=== PATIENT | female | born 1985 | race Caucasian/White ===

== ENCOUNTER 2020-10-20 14:31 | Emergency (ER) | payer MEDICAID ==
[~2020-10-20] VITALS: Ht 165.1 cm; Wt 54.5 kg
[2020-10-20 15:18] LABS: COVID AG,FIA SOURCE NASOPHARYNGEAL
[2020-10-20 17:22] VITALS: BP 139/85
== END 2020-10-20 17:23 | disposition home or self-care (01) ==
LOC: EMS 14:31
DX: U07.1 COVID-19 (principal)
CPT/HCPCS: 87426; 71045-TC

== ENCOUNTER 2020-11-05 12:43 | Emergency (ER) | payer MEDICAID ==
[~2020-11-05] VITALS: Ht 167.6 cm; Wt 56.8 kg
[2020-11-05 12:48] VITALS: BP 119/69
== END 2020-11-05 13:41 | disposition home or self-care (01) ==
LOC: EMS 12:45
DX: U07.1 COVID-19 (principal); F17.210 Nicotine dependence, cigarettes, uncomplicated; F12.90 Cannabis use, unspecified, uncomplicated; F19.90 Other psychoactive substance use, unspecified, uncomplicated; F11.90 Opioid use, unspecified, uncomplicated
CPT/HCPCS: Z7502

== ENCOUNTER 2020-12-05 16:27 | Emergency (ER) | payer MEDICAID, OTHER ==
[~2020-12-05] VITALS: Ht 167.6 cm; Wt 55.0 kg
[2020-12-05 18:09] LABS: COVID AG,FIA SOURCE NASOPHARYNGEAL
[2020-12-05 18:54] VITALS: BP 140/80
== END 2020-12-05 18:55 | disposition home or self-care (01) ==
LOC: EMS 16:27
DX: B19.20 Unspecified viral hepatitis C without hepatic coma (principal); F11.90 Opioid use, unspecified, uncomplicated; Z20.822 Contact with and (suspected) exposure to COVID-19
CPT/HCPCS: 87426; 93005; Z7502

== ENCOUNTER 2021-02-24 10:56 | Inpatient (IN) | payer MEDICAID, OTHER ==
[~2021-02-24] VITALS: Ht 167.6 cm; Wt 59.5 kg
[2021-02-24] MEDS ORDERED: HALOPERIDOL LACTATE 5 MG/ML VIAL IM ONE (11:30)
[2021-02-24] MEDS ORDERED: LORazepam 2 MG/ML VIAL IM ONE (11:30)
[2021-02-24] MEDS ORDERED: DiphenhydrAMINE HCL 50 MG/ML VIAL IM ONE (11:30)
[2021-02-24 12:07] LABS: COVID AG,FIA SOURCE NASOPHARYNGEAL
[2021-02-24] MEDS ORDERED: GuaiFENesin/D-METHORPHAN [SUGAR-FREE] 200-20MG/10 ML SYRUP UDCUP PO PRN (12:30)
[2021-02-24] MEDS ORDERED: MAGNESIUM HYDROXIDE SUSPENSION 30 ML UDCUP PO PRN (12:30)
[2021-02-24] MEDS ORDERED: LOPERAMIDE HCL 2 MG CAPSULE PO PRN (12:30)
[2021-02-24] MEDS ORDERED: TUBERCULIN, PURIFIED PROTEIN DERIVATIVE 5 TU/0.1 ML SYRINGE ID ONE (12:30)
[2021-02-24] MEDS ORDERED: HydrOXYzine PAMOATE 50 MG CAPSULE PO PRN (13:00)
[2021-02-24] MEDS ORDERED: MAG HYDROX/AL HYDROX/SIMETH ES 30 ML SUSPENSION UDCUP PO PRN (13:00)
[2021-02-24] MEDS ORDERED: CloNIDine HCL 0.1 MG TABLET PO PRN (13:00)
[2021-02-24 14:59] LABS: EOSINOPHILS % (AUTO) 1.5 % (1.0-6.0); HEMATOCRIT 39.8 % (36-46); HEMOGLOBIN 12.5 g/dL (12.0-16.0); LYMPHOCYTES # (AUTO) 1.2 K/uL (1.0-4.8); LYMPHOCYTES % (AUTO) 34.3 % (22.0-44.0); MEAN CORPUSCULAR HGB CONC 31.5 G/dL (31.0-37.0); MEAN CORPUSCULAR VOLUME 79 fL (80-100); MONOCYTES # (AUTO) 0.3 K/uL (0.1-1.0); MONOCYTES % (AUTO) 7.9 % (2.0-9.0); NEUTROPHILS % (AUTO) 55.3 % (40.0-70.0); RED BLOOD CELL COUNT(AUTO) 5.01 MIL/uL (4.00-5.20); RED CELL DISTRIBUTION WIDTH 14.1 % (11.5-14.5)
[2021-02-24 15:30] LABS: ANION GAP 10 mmol/L (8-16); CALCIUM, TOTAL 8.3 mg/dL (8.8-10.5); CARBON DIOXIDE 21 mmol/L (22-29); CHLORIDE 107 mmol/L (98-107); CREATININE 0.69 mg/dL (0.60-1.30); GLOMERULAR FILTR. RATE CALC > 60 mL/min (>60); GLUCOSE,RANDOM 75 mg/dL (70-110); POTASSIUM 4.3 mmol/L (3.5-5.1); SODIUM SERUM 138 mmol/L (136-145); UREA NITROGEN, BLOOD 12 mg/dL (7-18)
[2021-02-24 15:42] LABS: ALANINE AMINOTRANSFERASE 37 U/L (12-78); ALBUMIN 3.5 g/dL (3.4-5.0); ALKALINE PHOSPHATASE 47 U/L (46-116); ASPARTATE AMINOTRANSFERASE 52 U/L (15-37); BILIRUBIN,TOTAL 0.3 mg/dL (0.1-1.0); HCG,QUANTITATIVE < 1 mIU/mL (0-6); TOTAL PROTEIN, SERUM 7.6 g/dL (6.4-8.2)
[2021-02-24 15:46] LABS: PLATELET COUNT (AUTO) 155 K/uL (150-450)
[2021-02-24 16:40] VITALS: BP 117/76
[2021-02-24 18:00] VITALS: BP 108/68
[2021-02-24 19:00] VITALS: BP 117/76
[2021-02-24 20:00] VITALS: BP 117/77
[2021-02-24] MEDS: CloNIDine HCL 0.1 MG TABLET PO SCH (20:35)
[2021-02-24] MEDS: THIAMINE 100 MG TABLET PO SCH (20:35)
[2021-02-24 21:00] VITALS: BP 111/62
[2021-02-24] MEDS: OLANZapine 5 MG RAPDIS TABLET PO SCH (21:00)
[2021-02-24] MEDS: MELATONIN 5 MG TABLET PO SCH (21:00)
[2021-02-25] VITALS (10 sets, daily range): BP systolic 106–141; BP diastolic 62–92
[2021-02-25] MEDS: LORazepam 2 MG TABLET PO PRN ×4 (00:48→22:42)
[2021-02-25] MEDS: ZOLPIDEM TARTRATE 10 MG TABLET PO PRN ×2 (00:48→21:22)
[2021-02-25] MEDS: CloNIDine HCL 0.1 MG TABLET PO SCH ×5 (06:00→21:22)
[2021-02-25] MEDS: MULTIVITAMINS WITH MINERALS, THERAPEUTIC TABLET PO SCH (08:59)
[2021-02-25] MEDS: OMEGA-3/DHA/EPA/FISH OIL 1,000 MG CAPSULE PO SCH (08:59)
[2021-02-25] MEDS: THIAMINE 100 MG TABLET PO SCH ×2 (08:59→16:10)
[2021-02-25] MEDS: FOLIC ACID 1 MG TABLET PO SCH (08:59)
[2021-02-25] MEDS: NICOTINE 21 MG/24 HOUR PATCH TD SCH (09:06)
[2021-02-25] MEDS: OLANZapine 5 MG RAPDIS TABLET PO PRN (12:17)
[2021-02-25] MEDS: IBUPROFEN 600 MG TABLET PO PRN (13:18)
[2021-02-25] MEDS: MELATONIN 5 MG TABLET PO SCH (21:08)
[2021-02-25] MEDS: OLANZapine 5 MG RAPDIS TABLET PO SCH (21:09)
[2021-02-26] MEDS: OLANZapine 5 MG RAPDIS TABLET PO PRN ×2 (01:29→12:29)
[2021-02-26 01:44] VITALS: BP 133/80
[2021-02-26 05:53] VITALS: BP 143/92
[2021-02-26] MEDS: CloNIDine HCL 0.1 MG TABLET PO SCH ×4 (05:55→20:58)
[2021-02-26] MEDS: THIAMINE 100 MG TABLET PO SCH ×2 (08:34→17:01)
[2021-02-26] MEDS: FOLIC ACID 1 MG TABLET PO SCH (08:34)
[2021-02-26] MEDS: OMEGA-3/DHA/EPA/FISH OIL 1,000 MG CAPSULE PO SCH (08:34)
[2021-02-26] MEDS: MULTIVITAMINS WITH MINERALS, THERAPEUTIC TABLET PO SCH (08:34)
[2021-02-26] MEDS: NICOTINE 21 MG/24 HOUR PATCH TD SCH (08:34)
[2021-02-26] MEDS: HydrOXYzine PAMOATE 50 MG CAPSULE PO PRN ×2 (08:36→17:02)
[2021-02-26] MEDS: LORazepam 2 MG TABLET PO PRN (08:36)
[2021-02-26 09:06] VITALS: BP 126/83
[2021-02-26 16:22] VITALS: BP 130/90
[2021-02-26] MEDS: GABAPENTIN 300 MG CAPSULE PO SCH (20:57)
[2021-02-26] MEDS: MELATONIN 5 MG TABLET PO SCH (20:57)
[2021-02-26] MEDS: OLANZapine 10 MG RAPDIS TABLET PO SCH (20:59)
[2021-02-26] MEDS: IBUPROFEN 600 MG TABLET PO PRN (22:34)
[2021-02-26 22:38] VITALS: BP 124/85
[2021-02-27] VITALS: BP 142/87
[2021-02-27] MEDS: ZOLPIDEM TARTRATE 10 MG TABLET PO PRN (00:06)
[2021-02-27] MEDS: LORazepam 2 MG TABLET PO PRN (00:06)
[2021-02-27 02:20] VITALS: BP 155/78
[2021-02-27] MEDS ORDERED: DiphenhydrAMINE HCL 50 MG/ML VIAL ONE (03:24)
[2021-02-27] MEDS ORDERED: HALOPERIDOL LACTATE 5 MG/ML VIAL ONE (03:24)
[2021-02-27] MEDS ORDERED: DiphenhydrAMINE HCL 50 MG/ML VIAL IM ONE (03:30)
[2021-02-27] MEDS ORDERED: HALOPERIDOL LACTATE 5 MG/ML VIAL IM ONE (03:30)
[2021-02-27] MEDS: CloNIDine HCL 0.1 MG TABLET PO SCH ×4 (06:00→21:49)
[2021-02-27] MEDS: OMEGA-3/DHA/EPA/FISH OIL 1,000 MG CAPSULE PO SCH (09:00)
[2021-02-27] MEDS: FOLIC ACID 1 MG TABLET PO SCH (09:00)
[2021-02-27] MEDS: NICOTINE 21 MG/24 HOUR PATCH TD SCH (09:00)
[2021-02-27] MEDS: GABAPENTIN 300 MG CAPSULE PO SCH ×3 (09:00→16:32)
[2021-02-27] MEDS: THIAMINE 100 MG TABLET PO SCH ×2 (09:00→16:32)
[2021-02-27] MEDS: MULTIVITAMINS WITH MINERALS, THERAPEUTIC TABLET PO SCH (09:00)
[2021-02-27 13:24] VITALS: BP 120/83
[2021-02-27 13:25] VITALS: BP 120/83
[2021-02-27 16:11] VITALS: BP 108/65
[2021-02-27] MEDS: GABAPENTIN 400 MG CAPSULE PO SCH (21:32)
[2021-02-27] MEDS: MELATONIN 5 MG TABLET PO SCH (21:32)
[2021-02-27] MEDS: OLANZapine 10 MG RAPDIS TABLET PO SCH (21:32)
[2021-02-27] MEDS: DIVALPROEX SODIUM 250 MG ER TABLET PO SCH (21:33)
[2021-02-27 21:45] VITALS: BP 122/87
[2021-02-28] VITALS (10 sets, daily range): BP systolic 99–123; BP diastolic 63–81
[2021-02-28] MEDS: ZOLPIDEM TARTRATE 10 MG TABLET PO PRN ×2 (00:22→22:39)
[2021-02-28] MEDS: IBUPROFEN 600 MG TABLET PO PRN ×2 (03:40→22:39)
[2021-02-28] MEDS: CloNIDine HCL 0.1 MG TABLET PO SCH ×4 (06:03→20:55)
[2021-02-28] MEDS: LORazepam 2 MG TABLET PO PRN (10:57)
[2021-02-28] MEDS: MULTIVITAMINS WITH MINERALS, THERAPEUTIC TABLET PO SCH (10:57)
[2021-02-28] MEDS: FOLIC ACID 1 MG TABLET PO SCH (10:57)
[2021-02-28] MEDS: THIAMINE 100 MG TABLET PO SCH ×2 (10:57→16:28)
[2021-02-28] MEDS: GABAPENTIN 400 MG CAPSULE PO SCH ×4 (10:57→20:46)
[2021-02-28] MEDS: OMEGA-3/DHA/EPA/FISH OIL 1,000 MG CAPSULE PO SCH (10:57)
[2021-02-28] MEDS: NICOTINE 21 MG/24 HOUR PATCH TD SCH (11:06)
[2021-02-28] MEDS: DIVALPROEX SODIUM 250 MG ER TABLET PO SCH (20:46)
[2021-02-28] MEDS: OLANZapine 10 MG RAPDIS TABLET PO SCH (20:46)
[2021-02-28] MEDS: MELATONIN 5 MG TABLET PO SCH (20:46)
[2021-03-01] VITALS (7 sets, daily range): BP systolic 107–126; BP diastolic 71–73
[2021-03-01] MEDS: ACETAMINOPHEN 325 MG TABLET PO PRN ×2 (00:42→22:55)
[2021-03-01] MEDS: HydrOXYzine PAMOATE 50 MG CAPSULE PO PRN (00:42)
[2021-03-01] MEDS: CloNIDine HCL 0.1 MG TABLET PO SCH ×4 (05:56→20:47)
[2021-03-01] MEDS: MULTIVITAMINS WITH MINERALS, THERAPEUTIC TABLET PO SCH (08:37)
[2021-03-01] MEDS: GABAPENTIN 400 MG CAPSULE PO SCH ×4 (08:37→20:24)
[2021-03-01] MEDS: OMEGA-3/DHA/EPA/FISH OIL 1,000 MG CAPSULE PO SCH (08:37)
[2021-03-01] MEDS: THIAMINE 100 MG TABLET PO SCH ×2 (08:37→16:47)
[2021-03-01] MEDS: FOLIC ACID 1 MG TABLET PO SCH (08:37)
[2021-03-01] MEDS: NICOTINE 21 MG/24 HOUR PATCH TD SCH (08:40)
[2021-03-01] MEDS: LORazepam 2 MG TABLET PO PRN (11:38)
[2021-03-01] MEDS: OLANZapine 10 MG RAPDIS TABLET PO SCH (20:24)
[2021-03-01] MEDS: DIVALPROEX SODIUM 250 MG ER TABLET PO SCH (20:24)
[2021-03-01] MEDS: MELATONIN 5 MG TABLET PO SCH (20:24)
[2021-03-01] MEDS: ZOLPIDEM TARTRATE 10 MG TABLET PO PRN (23:41)
[2021-03-02] VITALS (7 sets, daily range): BP systolic 113–127; BP diastolic 76–81
[2021-03-02] MEDS: LORazepam 2 MG TABLET PO PRN (00:26)
[2021-03-02] MEDS: CloNIDine HCL 0.1 MG TABLET PO SCH ×4 (06:05→20:06)
[2021-03-02] MEDS: FOLIC ACID 1 MG TABLET PO SCH (09:00)
[2021-03-02] MEDS: OMEGA-3/DHA/EPA/FISH OIL 1,000 MG CAPSULE PO SCH (09:00)
[2021-03-02] MEDS: THIAMINE 100 MG TABLET PO SCH ×2 (09:00→17:00)
[2021-03-02] MEDS: MULTIVITAMINS WITH MINERALS, THERAPEUTIC TABLET PO SCH (09:00)
[2021-03-02] MEDS: GABAPENTIN 400 MG CAPSULE PO SCH ×4 (09:00→20:06)
[2021-03-02] MEDS: NICOTINE 21 MG/24 HOUR PATCH TD SCH ×2 (09:00→20:31)
[2021-03-02 12:36] LABS: COVID AG,FIA SOURCE NASOPHARYNGEAL
[2021-03-02] MEDS: MELATONIN 5 MG TABLET PO SCH (20:06)
[2021-03-02] MEDS: OLANZapine 10 MG RAPDIS TABLET PO SCH (20:06)
[2021-03-02] MEDS: DIVALPROEX SODIUM 250 MG ER TABLET PO SCH (20:06)
[2021-03-02] MEDS: ACETAMINOPHEN 325 MG TABLET PO PRN (22:05)
[2021-03-03] MEDS: IBUPROFEN 600 MG TABLET PO PRN (00:57)
[2021-03-03] MEDS: ZOLPIDEM TARTRATE 10 MG TABLET PO PRN ×2 (01:19→20:51)
[2021-03-03 03:06] VITALS: BP 130/85
[2021-03-03] MEDS: LORazepam 2 MG TABLET PO PRN (03:42)
[2021-03-03] MEDS: OLANZapine 5 MG RAPDIS TABLET PO PRN (03:42)
[2021-03-03 06:13] VITALS: BP 119/79
[2021-03-03] MEDS: CloNIDine HCL 0.1 MG TABLET PO SCH ×4 (06:13→22:24)
[2021-03-03] MEDS: MULTIVITAMINS WITH MINERALS, THERAPEUTIC TABLET PO SCH (09:28)
[2021-03-03] MEDS: THIAMINE 100 MG TABLET PO SCH ×2 (09:28→16:33)
[2021-03-03] MEDS: OMEGA-3/DHA/EPA/FISH OIL 1,000 MG CAPSULE PO SCH (09:28)
[2021-03-03] MEDS: GABAPENTIN 400 MG CAPSULE PO SCH ×4 (09:28→21:50)
[2021-03-03] MEDS: FOLIC ACID 1 MG TABLET PO SCH (09:28)
[2021-03-03 10:46] VITALS: BP 123/86
[2021-03-03 11:58] VITALS: BP 132/63
[2021-03-03 17:07] VITALS: BP 121/76
[2021-03-03 17:12] VITALS: BP 121/76
[2021-03-03] MEDS: MAG HYDROX/AL HYDROX/SIMETH ES 30 ML SUSPENSION UDCUP PO PRN (19:04)
[2021-03-03] MEDS: OLANZapine 10 MG RAPDIS TABLET PO SCH (21:50)
[2021-03-03] MEDS: DIVALPROEX SODIUM 250 MG ER TABLET PO SCH (21:50)
[2021-03-03] MEDS: MELATONIN 5 MG TABLET PO SCH (21:50)
[2021-03-04] MEDS: MAG HYDROX/AL HYDROX/SIMETH ES 30 ML SUSPENSION UDCUP PO PRN ×2 (01:54→15:39)
[2021-03-04] MEDS: LORazepam 2 MG TABLET PO PRN ×3 (01:54→22:56)
[2021-03-04 02:10] VITALS: BP 117/82
[2021-03-04] MEDS: MULTIVITAMINS WITH MINERALS, THERAPEUTIC TABLET PO SCH (08:14)
[2021-03-04] MEDS: THIAMINE 100 MG TABLET PO SCH ×2 (08:14→17:04)
[2021-03-04] MEDS: FOLIC ACID 1 MG TABLET PO SCH (08:15)
[2021-03-04] MEDS: NICOTINE 21 MG/24 HOUR PATCH TD SCH (08:15)
[2021-03-04] MEDS: GABAPENTIN 400 MG CAPSULE PO SCH ×4 (08:15→20:10)
[2021-03-04] MEDS: OLANZapine 5 MG RAPDIS TABLET PO PRN (08:19)
[2021-03-04] MEDS: OMEGA-3/DHA/EPA/FISH OIL 1,000 MG CAPSULE PO SCH (09:00)
[2021-03-04 09:32] VITALS: BP 132/77
[2021-03-04 16:36] VITALS: BP 137/93
[2021-03-04 16:43] VITALS: BP 137/93
[2021-03-04] MEDS: ZOLPIDEM TARTRATE 10 MG TABLET PO PRN (20:12)
[2021-03-04] MEDS: DIVALPROEX SODIUM 250 MG ER TABLET PO SCH (20:12)
[2021-03-04] MEDS: OLANZapine 10 MG RAPDIS TABLET PO SCH (20:14)
[2021-03-04] MEDS: MELATONIN 5 MG TABLET PO SCH (20:15)
[2021-03-05] MEDS: OLANZapine 5 MG RAPDIS TABLET PO PRN ×2 (01:04→08:40)
[2021-03-05 01:20] VITALS: BP 127/76
[2021-03-05] MEDS: LORazepam 2 MG TABLET PO PRN ×3 (03:12→19:45)
[2021-03-05] MEDS: ACETAMINOPHEN 325 MG TABLET PO PRN (04:26)
[2021-03-05 04:28] VITALS: BP 134/97
[2021-03-05] MEDS: THIAMINE 100 MG TABLET PO SCH ×2 (08:39→16:02)
[2021-03-05] MEDS: MULTIVITAMINS WITH MINERALS, THERAPEUTIC TABLET PO SCH (08:39)
[2021-03-05] MEDS: FOLIC ACID 1 MG TABLET PO SCH (08:39)
[2021-03-05] MEDS: OMEGA-3/DHA/EPA/FISH OIL 1,000 MG CAPSULE PO SCH (08:39)
[2021-03-05] MEDS: GABAPENTIN 400 MG CAPSULE PO SCH ×4 (08:39→19:45)
[2021-03-05] MEDS: NICOTINE 21 MG/24 HOUR PATCH TD SCH (08:40)
[2021-03-05 08:54] VITALS: BP 129/81
[2021-03-05] MEDS ORDERED: DiphenhydrAMINE HCL 50 MG/ML VIAL IM ONE (09:30)
[2021-03-05] MEDS ORDERED: HALOPERIDOL LACTATE 5 MG/ML VIAL IM ONE (09:30)
[2021-03-05] MEDS ORDERED: LORazepam 2 MG/ML VIAL IM ONE (09:30)
[2021-03-05 16:05] VITALS: BP 123/73
[2021-03-05] MEDS: MELATONIN 5 MG TABLET PO SCH (19:45)
[2021-03-05] MEDS: OLANZapine 10 MG RAPDIS TABLET PO SCH (20:17)
[2021-03-05] MEDS: DIVALPROEX SODIUM 250 MG ER TABLET PO SCH (20:18)
[2021-03-06] MEDS: OMEGA-3/DHA/EPA/FISH OIL 1,000 MG CAPSULE PO SCH (11:15)
[2021-03-06] MEDS: GABAPENTIN 400 MG CAPSULE PO SCH ×4 (11:15→19:53)
[2021-03-06] MEDS: MULTIVITAMINS WITH MINERALS, THERAPEUTIC TABLET PO SCH (11:15)
[2021-03-06] MEDS: THIAMINE 100 MG TABLET PO SCH (11:15)
[2021-03-06] MEDS: FOLIC ACID 1 MG TABLET PO SCH (11:15)
[2021-03-06] MEDS: DIVALPROEX SODIUM 500 MG ER TABLET PO SCH (11:15)
[2021-03-06] MEDS: MAG HYDROX/AL HYDROX/SIMETH ES 30 ML SUSPENSION UDCUP PO PRN ×2 (11:17→19:56)
[2021-03-06] MEDS: NICOTINE 21 MG/24 HOUR PATCH TD SCH (11:19)
[2021-03-06] MEDS: OLANZapine 5 MG RAPDIS TABLET PO PRN (13:32)
[2021-03-06] MEDS: LORazepam 2 MG TABLET PO PRN (13:33)
[2021-03-06] MEDS ORDERED: HALOPERIDOL LACTATE 5 MG/ML VIAL IM ONE (13:45)
[2021-03-06] MEDS ORDERED: DiphenhydrAMINE HCL 50 MG/ML VIAL IM ONE (13:45)
[2021-03-06 16:26] VITALS: BP 129/86
[2021-03-06] MEDS ORDERED: GABA-1201 PO (18:44)
[2021-03-06] MEDS ORDERED: NALT50TA PO (18:44)
[2021-03-06] MEDS ORDERED: DIVA-80 PO ×2 (18:44)
[2021-03-06] MEDS ORDERED: MELA5TAB3 PO (18:44)
[2021-03-06] MEDS ORDERED: OMEG-135 PO (18:44)
[2021-03-06] MEDS ORDERED: OLAN10TA22 PO (18:44)
[2021-03-06] MEDS: OLANZapine 10 MG RAPDIS TABLET PO SCH (19:53)
[2021-03-06] MEDS: MELATONIN 5 MG TABLET PO SCH (19:53)
[2021-03-06] MEDS ORDERED: DIVALPROEX SODIUM 500 MG ER TABLET PO SCH (21:00)
[2021-03-06] MEDS: ZOLPIDEM TARTRATE 10 MG TABLET PO PRN (21:53)
[2021-03-06] MEDS: ACETAMINOPHEN 325 MG TABLET PO PRN (21:54)
[2021-03-06 22:55] VITALS: BP 135/81
[2021-03-07] MEDS: LORazepam 2 MG TABLET PO PRN (00:52)
[2021-03-07 00:54] VITALS: BP 122/78
[2021-03-07] MEDS: ACETAMINOPHEN 325 MG TABLET PO PRN (02:57)
[2021-03-07 08:00] VITALS: BP 141/86
[2021-03-07] MEDS: NICOTINE 21 MG/24 HOUR PATCH TD SCH (08:10)
[2021-03-07] MEDS: DIVALPROEX SODIUM 500 MG ER TABLET PO SCH (08:11)
[2021-03-07] MEDS: MULTIVITAMINS WITH MINERALS, THERAPEUTIC TABLET PO SCH (08:11)
[2021-03-07] MEDS: GABAPENTIN 400 MG CAPSULE PO SCH (08:11)
[2021-03-07] MEDS: OMEGA-3/DHA/EPA/FISH OIL 1,000 MG CAPSULE PO SCH (08:11)
== END 2021-03-07 11:30 | disposition home or self-care (01) | DRG 750 ==
LOC: EMS 11:02 → 3EI 12:28 → 3EC 03-05 09:35
PROVIDERS: ADMIT Psychiatry & Neurology Psychiatry; ATTEND Psychiatry & Neurology Psychiatry
DX: F25.9 Schizoaffective disorder, unspecified (principal); Z59.0 Homelessness; F11.90 Opioid use, unspecified, uncomplicated; Z91.19 Patient's noncompliance with other medical treatment and regimen; F12.90 Cannabis use, unspecified, uncomplicated; F15.10 Other stimulant abuse, uncomplicated; R76.11 Nonspecific reaction to tuberculin skin test without active tuberculosis; F17.210 Nicotine dependence, cigarettes, uncomplicated; F41.9 Anxiety disorder, unspecified; F31.9 Bipolar disorder, unspecified; Z20.822 Contact with and (suspected) exposure to COVID-19
CPT/HCPCS: 87426; 99291; A9575; G0480; J1200; J1630; J2060; 36415-L1; 36415-TC; 71046; 71046-TC

== ENCOUNTER 2024-02-14 22:49 | Inpatient (IN) | payer MEDICAID, OTHER ==
[~2024-02-14] VITALS: Ht 167.6 cm; Wt 60.5 kg
[~2024-02-14 22:49] MED LIST: DIVA500T53 PO; GABA-1201 PO; MELA5TAB40 PO; NALT50TA PO; OLAN10TA22 PO; OMEG-135 PO
[2024-02-15] VITALS (10 sets, daily range): BP systolic 92–115; BP diastolic 52–72; PULSE 65–90; RESP 16–18; TEMP 97.2–98.3; O2SAT 96–98
[2024-02-15] MEDS: DiphenhydrAMINE HCL 50 MG/ML VIAL IM ONE (00:02)
[2024-02-15] MEDS: LORazepam 2 MG/ML VIAL IM ONE (00:02)
[2024-02-15] MEDS: HALOPERIDOL LACTATE 5 MG/ML VIAL IM ONE (00:03)
[2024-02-15] MEDS ORDERED: QUEtiapine FUMARATE 100 MG TABLET PO PRN (00:45)
[2024-02-15] MEDS ORDERED: ZOLPIDEM TARTRATE 10 MG TABLET PO PRN (00:45)
[2024-02-15 00:56] LABS: APPEARANCE,URINE CLEAR (CLEAR); BILIRUBIN,URINE NEGATIVE (NEGATIVE); COLOR,URINE COLORLESS (YELLOW); GLUCOSE, URINE (UA) NEGATIVE (NEGATIVE); KETONES,URINE NEGATIVE (NEGATIVE); LEUKOCYTE ESTERASE ,URINE NEGATIVE (NEGATIVE); NITRATE,URINE NEGATIVE (NEGATIVE); OCCULT BLOOD,URINE NEGATIVE (NEGATIVE); PROTEIN,URINE NEGATIVE (NEGATIVE); SPECIFIC GRAVITIY, URINE 1.005 (1.003-1.030); UROBILINOGEN,URINE <=1.0 mg/dL (<=1.0)
[2024-02-15 01:05] LABS: ALCOHOL, URINE DRUG SCREEN POSITIVE (NEGATIVE); AMPHET/METH SCREEN,URINE NEGATIVE (NEGATIVE); BARBITURATE SCREEN, URINE NEGATIVE (NEGATIVE); BENZODIAZEPINES SCREEN,URINE NEGATIVE (NEGATIVE); CANNABINOID SCREEN,URINE NEGATIVE (NEGATIVE); COCAINE SCREEN,URINE NEGATIVE (NEGATIVE); METHADONE SCREEN, URINE NEGATIVE (NEGATIVE); OPIATE SCREEN,URINE NEGATIVE (NEGATIVE); PHENCYCLIDINE SCREEN,URINE NEGATIVE (NEGATIVE)
[2024-02-15 01:16] LABS: COVID AG,FIA SOURCE NASAL SWAB
[2024-02-15 01:17] LABS: BASOPHILS % (AUTO) 0.3 % (0.0-2.0); EOSINOPHILS % (AUTO) 0.8 % (1.0-6.0); HEMATOCRIT 37.9 % (36-46); LYMPHOCYTES # (AUTO) 1.7 K/uL (1.0-4.8); LYMPHOCYTES % (AUTO) 38.2 % (22.0-44.0); MEAN CORPUSCULAR HEMOGLOBIN 28.9 pg (26.0-34.0); MEAN CORPUSCULAR HGB CONC 34.2 G/dL (31.0-37.0); MEAN CORPUSCULAR VOLUME 85 fL (80-100); MONOCYTES # (AUTO) 0.2 K/uL (0.1-1.0); MONOCYTES % (AUTO) 5.2 % (2.0-9.0); NEUTROPHILS # (AUTO) 2.5 K/uL (1.8-7.7); NEUTROPHILS % (AUTO) 55.5 % (40.0-70.0); PLATELET COUNT (AUTO) 221 K/uL (150-450); RED BLOOD CELL COUNT(AUTO) 4.48 MIL/uL (4.00-5.20); RED CELL DISTRIBUTION WIDTH 13.6 % (11.5-14.5); WHITE BLOOD COUNT (AUTO) 4.6 K/uL (4.5-11.0)
[2024-02-15 01:26] LABS: ANION GAP 14 mmol/L (8-16); CALCIUM, TOTAL 8.5 mg/dL (8.8-10.5); CARBON DIOXIDE 23 mmol/L (22-29); CHLORIDE 105 mmol/L (98-107); CREATININE 0.71 mg/dL (0.60-1.30); GLOMERULAR FILTR. RATE CALC > 60 mL/min (>60); GLUCOSE,RANDOM 100 mg/dL (70-110); POTASSIUM 3.5 mmol/L (3.5-5.1); SODIUM SERUM 142 mmol/L (136-145); UREA NITROGEN, BLOOD 5 mg/dL (7-18)
[2024-02-15 01:32] LABS: ALANINE AMINOTRANSFERASE 20 U/L (12-78); ALBUMIN 3.6 g/dL (3.4-5.0); ALKALINE PHOSPHATASE 53 U/L (46-116); ASPARTATE AMINOTRANSFERASE 39 U/L (15-37); BILIRUBIN,TOTAL 0.3 mg/dL (0.1-1.0); SARS-COV2 (COVID) ANTIGEN,FIA Negative (Negative); TOTAL PROTEIN, SERUM 7.8 g/dL (6.4-8.2)
[2024-02-15 01:33] LABS: ALCOHOL, BLOOD (SERUM) 159 mg/dL (0-10)
[2024-02-15] MEDS ORDERED: INFLUENZA VIRUS VACCINE QVS 2023-24 (6MO+)/PF 60 MCG/0.5 ML SYRINGE IM. ONE (04:30)
[2024-02-15] MEDS ORDERED: GuaiFENesin/D-METHORPHAN [SUGAR-FREE] 200-20MG/10 ML SYRUP UDCUP PO PRN (10:15)
[2024-02-15] MEDS ORDERED: DIAZEPAM 10 MG TABLET PO PRN (10:15)
[2024-02-15] MEDS ORDERED: LOPERAMIDE HCL 2 MG CAPSULE PO PRN ×2 (10:15)
[2024-02-15] MEDS ORDERED: TUBERCULIN, PURIFIED PROTEIN DERIVATIVE 5 TU/0.1 ML SYRINGE ID ONE (10:15)
[2024-02-15] MEDS ORDERED: HydrOXYzine PAMOATE 50 MG CAPSULE PO PRN (10:15)
[2024-02-15] MEDS ORDERED: MAGNESIUM HYDROXIDE SUSPENSION 30 ML UDCUP PO PRN (10:15)
[2024-02-15] MEDS ORDERED: PROMETHAZINE HCL 25 MG TABLET PO PRN (10:15)
[2024-02-15] MEDS ORDERED: MAG HYDROX/ALUMINUM HYD/SIMETH ES 30 ML SUSPENSION UDCUP PO PRN (10:15)
[2024-02-15] MEDS ORDERED: ACETAMINOPHEN 325 MG TABLET PO PRN (10:15)
[2024-02-15] MEDS: CYANOCOBALAMIN 1,000 MCG/ML VIAL IM ONE (10:27)
[2024-02-15] MEDS: LORazepam 2 MG TABLET PO PRN (12:29)
[2024-02-15] MEDS: GABAPENTIN 300 MG CAPSULE PO SCH (13:49)
[2024-02-15] MEDS: DIVALPROEX SODIUM 500 MG ER TABLET PO SCH (16:42)
[2024-02-15] MEDS: THIAMINE 100 MG TABLET PO SCH (16:42)
[2024-02-15] MEDS: MELATONIN 5 MG TABLET PO SCH (20:08)
[2024-02-15] MEDS: OLANZapine 5 MG RAPDIS TABLET PO SCH (20:08)
[2024-02-16 02:30] VITALS: BP 104/67; PULSE 82; RESP 17; TEMP 97.8; O2SAT 100
[2024-02-16 06:30] VITALS: BP 111/64; PULSE 81; RESP 18; TEMP 98.4; O2SAT 97
[2024-02-16] MEDS ORDERED: DIAZEPAM 10 MG TABLET PO PRN (07:00)
[2024-02-16] MEDS: MULTIVITAMINS WITH MINERALS, THERAPEUTIC TABLET PO SCH (08:26)
[2024-02-16] MEDS: NALTREXONE HCL 50 MG TABLET PO SCH (08:26)
[2024-02-16] MEDS: OMEGA-3/DHA/EPA/FISH OIL 1,000 MG CAPSULE PO SCH (08:26)
[2024-02-16] MEDS: DIAZEPAM 10 MG TABLET PO SCH (08:26)
[2024-02-16] MEDS: FOLIC ACID 1 MG TABLET PO SCH (08:26)
[2024-02-16 08:43] LABS: HEMOGLOBIN A1C 5.4 % (3.8-5.6)
[2024-02-16 08:52] LABS: FREE T4 (FREE THYROXINE) 1.08 ng/dL (0.76-1.46); THYROID STIMULATING HORMONE 1.66 uIU/mL (0.36-3.74)
[2024-02-16 09:15] VITALS: BP 111/63; PULSE 83; RESP 16; TEMP 97.7; O2SAT 98
[2024-02-16] MEDS ORDERED: OLAN5TAB94 PO (17:48)
[2024-02-16] MEDS ORDERED: DIVA500T69 PO (17:48)
[2024-02-16] MEDS ORDERED: GABA-1181 PO (17:48)
[2024-02-16] MEDS ORDERED: NALT50TA33 PO (17:48)
[2024-02-16 21:32] VITALS: BP 108/67; PULSE 98; RESP 18; TEMP 97.4; O2SAT 97
[2024-02-17 08:30] VITALS: BP 108/87; PULSE 95; RESP 21; TEMP 97.9; O2SAT 99
[2024-02-17] MEDS ORDERED: GABAPENTIN 400 MG CAPSULE PO SCH (17:00)
[2024-02-17] MEDS ORDERED: DIVALPROEX SODIUM 500 MG ER TABLET PO SCH ×2 (21:00)
[2024-02-18] MEDS ORDERED: DIAZEPAM 5 MG TABLET PO PRN (07:00)
[2024-02-18] MEDS ORDERED: DIAZEPAM 5 MG TABLET PO SCH (09:00)
[2024-02-18] MEDS ORDERED: VENLAFAXINE HCL 37.5 MG ER CAPSULE PO SCH (09:00)
[2024-02-19] MEDS ORDERED: DIAZEPAM 5 MG TABLET PO PRN (07:00)
== END 2024-02-17 14:50 | disposition home or self-care (01) | DRG 750 ==
LOC: EMS 22:49 → B3A 02-15 01:49
PROVIDERS: ADMIT Psychiatry & Neurology Psychiatry; ATTEND Psychiatry & Neurology Psychiatry
PROC: GZHZZZZ Group Psychotherapy (ICD-10-PCS; principal; 2024-02-15)
PROC: GZ51ZZZ Individual Psychotherapy, Behavioral (ICD-10-PCS; 2024-02-15)
DX: F25.9 Schizoaffective disorder, unspecified (principal); R45.851 Suicidal ideations; F32.A Depression, unspecified; F17.200 Nicotine dependence, unspecified, uncomplicated; Z20.822 Contact with and (suspected) exposure to COVID-19; B19.20 Unspecified viral hepatitis C without hepatic coma; F19.90 Other psychoactive substance use, unspecified, uncomplicated; J44.9 Chronic obstructive pulmonary disease, unspecified; Z79.899 Other long term (current) drug therapy; Z91.199 Patient's noncompliance with other medical treatment and regimen due to unspecified reason
CPT/HCPCS: 80053; 80061; 80307; 81003; 83036; 84439; 84443; 84703; 85025; 86592; 99285; G0480; J1200; J1630; J2060; J3420; Q9967

== ENCOUNTER 2025-01-18 16:29 | Emergency (ER) | payer OTHER ==
[~2025-01-18] VITALS: Ht 167.6 cm; Wt 55.0 kg
[~2025-01-18 16:29] MED LIST changes: +CYCL-448 PO; +DIVA-153 PO; -DIVA500T53 PO; +DIVA500T69 PO; +GABA-1181 PO; +LIDO700A15 TP; -NALT50TA PO; +NALT50TA33 PO; +NALT50TA6 PO; +OLAN5TAB94 PO
[2025-01-18 18:01] VITALS: BP 128/90; PULSE 102; RESP 20; TEMP 98.1; O2SAT 100
== END 2025-01-18 18:48 | disposition left against medical advice (07) ==
LOC: EMS 16:29
DX: R51.9 Headache, unspecified (principal); Z53.21 Procedure and treatment not carried out due to patient leaving prior to being seen by health care provider

== ENCOUNTER 2025-02-01 07:31 | Inpatient (IN) | payer OTHER ==
[~2025-02-01] VITALS: Ht 167.6 cm; Wt 58.2 kg
[2025-02-01] MEDS ORDERED: [UNRECOGNIZED DRUG - REMARK] PO (07:38)
[2025-02-01 07:59] LABS: BASOPHILS % (AUTO) 0.4 % (0.0-2.0); EOSINOPHILS % (AUTO) 1.2 % (1.0-6.0); HEMATOCRIT 34.1 % (36-46); HEMOGLOBIN 10.9 g/dL (12.0-16.0); LYMPHOCYTES % (AUTO) 15.8 % (22.0-44.0); MEAN CORPUSCULAR HEMOGLOBIN 25.5 pg (26.0-34.0); MEAN CORPUSCULAR VOLUME 80 fL (80-100); MONOCYTES # (AUTO) 0.5 K/uL (0.1-1.0); MONOCYTES % (AUTO) 8.1 % (2.0-9.0); NEUTROPHILS # (AUTO) 4.9 K/uL (1.8-7.7); NEUTROPHILS % (AUTO) 74.5 % (40.0-70.0); PLATELET COUNT (AUTO) 210 K/uL (150-450); RED BLOOD CELL COUNT(AUTO) 4.28 MIL/uL (4.00-5.20); RED CELL DISTRIBUTION WIDTH 16.4 % (11.5-14.5); WHITE BLOOD COUNT (AUTO) 6.6 K/uL (4.5-11.0)
[2025-02-01 08:07] LABS: ANION GAP 8 mmol/L (8-16); CALCIUM, TOTAL 8.3 mg/dL (8.8-10.5); CARBON DIOXIDE 23 mmol/L (22-29); CHLORIDE 105 mmol/L (98-107); GLOMERULAR FILTR. RATE CALC > 60 mL/min (>60); GLUCOSE,RANDOM 94 mg/dL (70-110); LIPASE 49 U/L (16-77); POTASSIUM 4.1 mmol/L (3.5-5.1); SODIUM SERUM 136 mmol/L (136-145); UREA NITROGEN, BLOOD 8 mg/dL (7-18)
[2025-02-01] MEDS: SODIUM CHLORIDE 0.9% 2,000 ML IV ONE (08:49)
[2025-02-01] MEDS: KETOROLAC TROMETHAMINE 30 MG/ML VIAL IVP ONE ×2 (08:49→12:46)
[2025-02-01] MEDS: ONDANSETRON HCL 4 MG/2 ML VIAL IVP ONE (08:50)
[2025-02-01] MEDS ORDERED: IOHEXOL 350 MG/ML 100 ML VIAL ONE (08:56)
[2025-02-01] MEDS ORDERED: SODIUM CHLORIDE 0.9% 100 ML ONE (08:56)
[2025-02-01] MEDS: IOHEXOL 9 MG/ML 500 ML BOTTLE PO ONE (09:10)
[2025-02-01 09:15] LABS: APPEARANCE,URINE TURBID (CLEAR); BILIRUBIN,URINE NEGATIVE (NEGATIVE); COLOR,URINE YELLOW (YELLOW); GLUCOSE, URINE (UA) NEGATIVE (NEGATIVE); KETONES,URINE NEGATIVE (NEGATIVE); LEUKOCYTE ESTERASE ,URINE LARGE (NEGATIVE); NITRATE,URINE NEGATIVE (NEGATIVE); OCCULT BLOOD,URINE LARGE (NEGATIVE); PROTEIN,URINE 30-70 mg/dL (NEGATIVE); SPECIFIC GRAVITIY, URINE 1.015 (1.003-1.030); UROBILINOGEN,URINE <=1.0 mg/dL (<=1.0)
[2025-02-01 09:33] LABS: BACTERIA,URINE Many /HPF (None Seen); RBC,URINE >100 /HPF (0-2); WBC,URINE >100 /HPF (0-5)
[2025-02-01 09:34] LABS: SQUAMOUS EPITHELIAL CELL,UR Many /LPF (None Seen)
[2025-02-01 10:29] LABS: ALCOHOL, URINE DRUG SCREEN NEGATIVE (NEGATIVE); AMPHET/METH SCREEN,URINE POSITIVE (NEGATIVE); BARBITURATE SCREEN, URINE NEGATIVE (NEGATIVE); BENZODIAZEPINES SCREEN,URINE NEGATIVE (NEGATIVE); CANNABINOID SCREEN,URINE POSITIVE (NEGATIVE); COCAINE SCREEN,URINE NEGATIVE (NEGATIVE); METHADONE SCREEN, URINE NEGATIVE (NEGATIVE); OPIATE SCREEN,URINE NEGATIVE (NEGATIVE); PHENCYCLIDINE SCREEN,URINE NEGATIVE (NEGATIVE)
[2025-02-01] MEDS: CefTRIAXone 1 GM/DEXTROSE 50 ML IV ONE (10:47)
[2025-02-01] MEDS ORDERED: DULO-114 PO (11:54)
[2025-02-01] MEDS ORDERED: OMEP-148 PO (11:54)
[2025-02-01] MEDS ORDERED: CYCL-448 PO (11:54)
[2025-02-01] MEDS: LORazepam 2 MG/ML VIAL IVP ONE (12:46)
[2025-02-01] MEDS ORDERED: MAGNESIUM HYDROXIDE SUSPENSION 30 ML UDCUP PO PRN (14:45)
[2025-02-01] MEDS ORDERED: ONDANSETRON HCL 4 MG/2 ML VIAL IVP PRN (14:45)
[2025-02-01] MEDS ORDERED: BISACODYL 10 MG RECTAL RECTAL SUPPOSITORY PR PRN (14:45)
[2025-02-01] MEDS ORDERED: ZOLPIDEM TARTRATE 5 MG TABLET PO PRN (14:45)
[2025-02-01] MEDS: SODIUM CHLORIDE 0.9% 1,000 ML IV ONE (16:00)
[2025-02-01] MEDS: HEPARIN SODIUM,PORCINE 5,000 UNITS/ML VIAL SQ SCH (16:00)
[2025-02-01 17:00] VITALS: BP 123/76; PULSE 85; RESP 18; TEMP 97.7; O2SAT 99
[2025-02-01 19:56] VITALS: BP 129/61; PULSE 67; RESP 18; TEMP 97.6; O2SAT 95
[2025-02-01] MEDS: DOCUSATE SODIUM 100 MG CAPSULE PO SCH (20:28)
[2025-02-02] MEDS: ACETAMINOPHEN 325 MG TABLET PO PRN (00:38)
[2025-02-02 04:26] VITALS: BP 117/76; PULSE 75; RESP 18; TEMP 97.8; O2SAT 95
[2025-02-02 07:08] LABS: BASOPHILS % (AUTO) 0.3 % (0.0-2.0); HEMATOCRIT 31.3 % (36-46); HEMOGLOBIN 10.3 g/dL (12.0-16.0); LYMPHOCYTES # (AUTO) 0.9 K/uL (1.0-4.8); LYMPHOCYTES % (AUTO) 28.3 % (22.0-44.0); MEAN CORPUSCULAR HEMOGLOBIN 26.3 pg (26.0-34.0); MEAN CORPUSCULAR HGB CONC 32.9 G/dL (31.0-37.0); MEAN CORPUSCULAR VOLUME 80 fL (80-100); MONOCYTES # (AUTO) 0.2 K/uL (0.1-1.0); MONOCYTES % (AUTO) 6.9 % (2.0-9.0); NEUTROPHILS # (AUTO) 1.9 K/uL (1.8-7.7); NEUTROPHILS % (AUTO) 62.5 % (40.0-70.0); PLATELET COUNT (AUTO) 154 K/uL (150-450); RED BLOOD CELL COUNT(AUTO) 3.91 MIL/uL (4.00-5.20); RED CELL DISTRIBUTION WIDTH 16.6 % (11.5-14.5); WHITE BLOOD COUNT (AUTO) 3.1 K/uL (4.5-11.0)
[2025-02-02 07:11] LABS: ANION GAP 6 mmol/L (8-16); CALCIUM, TOTAL 7.5 mg/dL (8.8-10.5); CARBON DIOXIDE 24 mmol/L (22-29); CHLORIDE 108 mmol/L (98-107); CREATININE 0.52 mg/dL (0.60-1.30); GLOMERULAR FILTR. RATE CALC > 60 mL/min (>60); GLUCOSE,RANDOM 78 mg/dL (70-110); POTASSIUM 3.7 mmol/L (3.5-5.1); SODIUM SERUM 138 mmol/L (136-145); UREA NITROGEN, BLOOD 5 mg/dL (7-18)
[2025-02-02] MEDS ORDERED: SODIUM CHLORIDE 0.9% 500 ML IV ONE (07:18)
[2025-02-02 07:30] VITALS: BP 111/68; PULSE 66; RESP 19; TEMP 98; O2SAT 97
[2025-02-02] MEDS: OMEPRAZOLE 20 MG CAPSULE PO SCH (08:51)
[2025-02-02] MEDS: DULoxetine HCL 30 MG CAPSULE PO SCH (08:51)
[2025-02-02] MEDS ORDERED: PANTOPRAZOLE SODIUM 40 MG DR TABLET PO SCH (09:00)
[2025-02-02] MEDS: HYDROCODONE/ACETAMINOPHEN 5-325 MG TABLET PO PRN (10:12)
[2025-02-02] MEDS: CefTRIAXone 1 GM/DEXTROSE 50 ML IV SCH (10:13)
[2025-02-02] MEDS: MORPHINE SULFATE 2 MG/ML SYRINGE IVP PRN (14:20)
== END 2025-02-02 17:25 | disposition left against medical advice (07) | DRG 247 ==
LOC: EMS 07:50 → EDH 12:10 → 6S 16:34
PROVIDERS: ADMIT Internal Medicine; ATTEND Internal Medicine
PROC: 0D9670Z Drainage of Stomach with Drainage Device, Via Natural or Artificial Opening (ICD-10-PCS; principal; 2025-02-02)
DX: K56.7 Ileus, unspecified (principal); F25.9 Schizoaffective disorder, unspecified; F15.10 Other stimulant abuse, uncomplicated; K56.600 Partial intestinal obstruction, unspecified as to cause; G89.29 Other chronic pain; K21.9 Gastro-esophageal reflux disease without esophagitis; M54.9 Dorsalgia, unspecified; Z53.29 Procedure and treatment not carried out because of patient's decision for other reasons; Z87.891 Personal history of nicotine dependence; Z98.891 History of uterine scar from previous surgery
CPT/HCPCS: 74177; 80048; 80307; 81001; 83690; 84703; 85025; 87077; 87086; 87186; 99285; J0696; J1644; J1885; J2060; J2270; J2405; J7030; J7040; J7050

== ENCOUNTER 2025-09-05 03:51 | Emergency (ER) | payer MEDICAID, OTHER ==
[~2025-09-05] VITALS: Ht 167.6 cm; Wt 61.4 kg
[~2025-09-05 03:51] MED LIST changes: +ARIP10TA8 PO; -CYCL-448 PO; -DIVA-153 PO; -DIVA500T69 PO; -GABA-1181 PO; -GABA-1201 PO; -LIDO700A15 TP; -MELA5TAB40 PO; -NALT50TA33 PO; -NALT50TA6 PO; -OLAN10TA22 PO; -OLAN5TAB94 PO; -OMEG-135 PO; +TRAZ-184 PO
[2025-09-05 04:10] VITALS: TEMP 99.105368
[2025-09-05] MEDS: IBUPROFEN 400 MG TABLET PO ONE (04:54)
[2025-09-05] MEDS: ACETAMINOPHEN 500 MG TABLET PO ONE (04:55)
[2025-09-05 06:01] VITALS: BP 114/85; PULSE 106; RESP 18; O2SAT 98
== END 2025-09-05 06:15 | disposition home or self-care (01) ==
LOC: EMS 04:16
DX: S40.022A Contusion of left upper arm, initial encounter (principal); S80.11XA Contusion of right lower leg, initial encounter; F10.20 Alcohol dependence, uncomplicated; F12.90 Cannabis use, unspecified, uncomplicated; F31.9 Bipolar disorder, unspecified; Z79.899 Other long term (current) drug therapy; X58.XXXA Exposure to other specified factors, initial encounter; Y93.89 Activity, other specified; Y92.89 Other specified places as the place of occurrence of the external cause; Y99.8 Other external cause status
CPT/HCPCS: 99284; 73070-TC; 73590-TC; Z7502; Z7610

== ENCOUNTER 2025-09-24 11:07 | Emergency (ER) | payer OTHER ==
[~2025-09-24] VITALS: Ht 167.6 cm; Wt 59.0 kg
[2025-09-24 11:12] VITALS: BP 123/80; PULSE 81; RESP 18; TEMP 98.1; O2SAT 100
[2025-09-24 11:52] LABS: APPEARANCE,URINE CLEAR (CLEAR); GLUCOSE, URINE (UA) NEGATIVE (NEGATIVE); LEUKOCYTE ESTERASE ,URINE NEGATIVE (NEGATIVE); NITRATE,URINE NEGATIVE (NEGATIVE); OCCULT BLOOD,URINE NEGATIVE (NEGATIVE); SPECIFIC GRAVITIY, URINE 1.004 (1.003-1.030)
[2025-09-24 14:32] LABS: PLATELET COUNT (AUTO) 227 K/uL (150-450); RED BLOOD CELL COUNT(AUTO) 4.88 MIL/uL (4.00-5.20); RED CELL DISTRIBUTION WIDTH 17.0 % (11.5-14.5); WHITE BLOOD COUNT (AUTO) 5.2 K/uL (4.5-11.0)
[2025-09-24] MEDS: ONDANSETRON 4 MG TABLET PO ONE (14:42)
[2025-09-24] MEDS: DICYCLOMINE HCL 20 MG TABLET PO ONE (14:42)
[2025-09-24] MEDS: OMEPRAZOLE 20 MG CAPSULE PO ONE (14:42)
[2025-09-24 14:45] LABS: CALCIUM, TOTAL 8.6 mg/dL (8.8-10.5); CREATININE 0.58 mg/dL (0.60-1.30); GLOMERULAR FILTR. RATE CALC > 60 mL/min (>60); GLUCOSE,RANDOM 83 mg/dL (70-110); SODIUM SERUM 138 mmol/L (136-145); UREA NITROGEN, BLOOD 11 mg/dL (7-18)
[2025-09-24 14:46] LABS: ASPARTATE AMINOTRANSFERASE 28.0 U/L (15-37); TOTAL PROTEIN, SERUM 7.5 g/dL (6.4-8.2)
[2025-09-24 15:09] LABS: RBC MORPHOLOGY COMMENT ABNORMAL RBC MORPH
[2025-09-24] MEDS ORDERED: ONDA-104 PO (15:20)
[2025-09-24] MEDS ORDERED: DICY20TA95 PO (15:20)
[2025-09-24] MEDS ORDERED: ACET-66 PO (15:20)
[2025-09-24] MEDS ORDERED: OMEP-148 PO (15:20)
== END 2025-09-24 15:35 | disposition home or self-care (01) ==
LOC: EMS 11:07
DX: K58.9 Irritable bowel syndrome, unspecified (principal); R10.84 Generalized abdominal pain; F12.90 Cannabis use, unspecified, uncomplicated; F15.90 Other stimulant use, unspecified, uncomplicated; F17.210 Nicotine dependence, cigarettes, uncomplicated; R11.0 Nausea; K59.00 Constipation, unspecified; F10.20 Alcohol dependence, uncomplicated; F19.11 Other psychoactive substance abuse, in remission; Z98.890 Other specified postprocedural states; Z91.0110 Allergy to milk products, unspecified; Z79.899 Other long term (current) drug therapy
CPT/HCPCS: 99284; 80048; 80076; 81003; 83690; 84703; 85025; 36415; Q0162